=== PATIENT | male | born 1945 | race Caucasian/White ===

== ENCOUNTER 2018-01-22 01:10 | Emergency (ER) | payer BC, MEDICARE ==
[2018-01-22] MEDS ORDERED: ONDANSETRON 4 MG TAB.RAPDIS PO ONE ×2 (01:39→05:13)
--- NOTE | 2018-01-22 01:43 | ER Document Report ---
ED General - General Mode of Arrival: Ambulatory Information source: Patient TRAVEL OUTSIDE OF THE [place] IN LAST 30 DAYS: No - HPI Onset: Other - 7 hours Onset/Duration: Sudden Quality of pain: No pain Severity: None Pain Level: Denies Associated symptoms: Nausea Exacerbated by: Denies Relieved by: Denies Similar symptoms previously: No Recently seen / treated by doctor: No <TANNER CHAVEZ - Last Filed: 01/22/18 05:13> <OZ FARRAR - Last Filed: 01/22/18 08:29> - General Chief Complaint: Blood Pressure Problem Stated Complaint: NAUSEA Time Seen by Provider: 01/22/18 01:30 Notes: 72-year-old male presents the emergency department with complaints of nausea and some anxiousness. Patient states that the nausea started before dinner. He states that he ate a salad and lost his appetite. The nausea continued to persist. Patient checked his blood pressure and noticed it to be elevated. He states that his heart rate was elevated as well. Patient states that this caused him to become more anxious. He does have a history of anxiety and panic attacks. He states that he is not on any medication for this currently. He denies any chest pain or shortness of breath. He does have a history of coronary artery disease, hypertension, hyperlipidemia, family history of cad. Patient denies smoking. (TANNER CHAVEZ) - Related Data Allergies/Adverse Reactions: No Known Allergies Allergy (Unverified 01/22/18 08:04) Past Medical History - Social History Smoking Status: Never Smoker Chew tobacco use (# tins/day): No Frequency of alcohol use: Social Drug Abuse: None Family History: Reviewed & Not Pertinent Patient has suicidal ideation: No Patient has homicidal ideation: No Renal/ Medical History: Denies: Hx Peritoneal Dialysis <TANNER CHAVEZ - Last Filed: 01/22/18 05:13> Review of Systems - Review of Systems Constitutional: No symptoms reported EENT: No symptoms reported Cardiovascular: No symptoms reported Respiratory: No symptoms reported Gastrointestinal: Nausea Genitourinary: No symptoms reported Musculoskeletal: No symptoms reported Skin: No symptoms reported Hematologic/Lymphatic: No symptoms reported Neurological/Psychological: No symptoms reported -: Yes All other systems reviewed and negative <TANNER CHAVEZ - Last Filed: 01/22/18 05:13> Physical Exam - Vital signs Interpretation: Normal <TANNER CHAVEZ - Last Filed: 01/22/18 05:13> <OZ FARRAR - Last Filed: 01/22/18 08:29> - Vital signs Vitals: Temp Pulse Resp BP Pulse Ox 98 F 84 18 160/79 H 96 01/22/18 01:10 01/22/18 01:10 01/22/18 01:10 01/22/18 01:10 01/22/18 01:10 - Notes Notes: PHYSICAL EXAMINATION: GENERAL: Well-appearing, well-nourished and in no acute distress. HEAD: Atraumatic, normocephalic. EYES: Pupils equal round and reactive to light, extraocular movements intact, sclera anicteric, conjunctiva are normal. ENT: Nares patent, oropharynx clear without exudates. Moist mucous membranes. NECK: Normal range of motion, supple without lymphadenopathy LUNGS: Breath sounds clear to auscultation bilaterally and equal. No wheezes rales or rhonchi. HEART: Regular rate and rhythm without murmurs ABDOMEN: Soft, nontender, nondistended abdomen. No guarding, no rebound. No masses appreciated. Musculoskeletal: Normal range of motion, no pitting or edema. No cyanosis. NEUROLOGICAL: Cranial nerves grossly intact. Normal speech, normal gait. Normal sensory, motor exams PSYCH: Normal mood, normal affect. SKIN: Warm, Dry, normal turgor, no rashes or lesions noted. (TANNER CHAVEZ ) Course - Laboratory Result Diagrams: 01/22/18 01:41 01/22/18 01:41 <TANNER CHAVEZ - Last Filed: 01/22/18 05:13> - Laboratory Result Diagrams: 01/22/18 01:41 01/22/18 01:41 <OZ FARRAR - Last Filed: 01/22/18 08:29> - Re-evaluation Re-evalutation: 01/22/18 05:14 Labs and imaging obtained. 2 sets of troponin ordered. Both normal but second troponin is slightly increased from 1st. Patient remains asymptomatic. I will obtain another troponin. 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 01/22/18 07:28 01/22/18 07:48 Dr Tanner [facility] states pt does not meet transfer criteria [facility] Dr whittington does not have priveledges at [facility] paged 01/22/18 08:29 Dr whittington accepts patient for transfer (OZ FARRAR) - Vital Signs Vital signs: Temp Pulse Resp BP Pulse Ox 98 F 84 16 137/75 H 97 01/22/18 01:10 01/22/18 01:10 01/22/18 08:08 01/22/18 08:08 01/22/18 08:08 - Laboratory Laboratory results interpreted by me: 01/22/18 01/22/18 01:41 01:41 Seg Neutrophils % 84.2 H Lymphocytes % 8.5 L Glucose 112 H - EKG Interpretation by Me Additional EKG results interpreted by me: 01/22/18 01:42 EKG: Ventricular rate 82, MO interval 172, QRS duration 106, QTc 463, normal sinus rhythm, no ischemic changes. (TANNER CHAVEZ) Discharge <TANNER CHAVEZ - Last Filed: 01/22/18 05:13> <OZ FARRAR - Last Filed: 01/22/18 08:29> - Discharge Clinical Impression: Nausea, Anxiety Condition: Stable Disposition: [place] Instructions: Anxiety ([facility]), Nausea or Vomiting, Nonspecific ([facility]) Referrals: ABA PHELAN MD [Primary Care Provider] - Follow up as needed
[2018-01-22 01:55] LABS: ABSOLUTE LYMPHOCYTES (AUTO) 0.8 10^3/uL (0.5-4.7); ABSOLUTE MONOCYTES (AUTO) 0.6 10^3/uL (0.1-1.4); ABSOLUTE NEUT (AUTO) 7.6 10^3/uL (1.7-8.2); BASOPHILS % (AUTO) 0.5 % (0-2); EOSINOPHILS % (AUTO) 0.4 % (0-6); HEMATOCRIT 44.3 % (37.9-51.0); HEMOGLOBIN 15.8 g/dL (13.5-17.0); LYMPHOCYTES % (AUTO) 8.5 % (13-45); MEAN CORPUSCULAR HEMOGLOBIN 32.6 pg (27.0-33.4); MEAN CORPUSCULAR HGB CONC 35.6 g/dL (32.0-36.0); MEAN CORPUSCULAR VOLUME 92 fl (80-97); MONOCYTES % (AUTO) 6.4 % (3-13); PLATELET COUNT 181 10^3/uL (150-450); RED BLOOD COUNT 4.84 10^6/uL (4.35-5.55); RED CELL DISTRIBUTION WIDTH 13.3 % (11.5-14.0); SEGMENTED NEUTROPHILS % (AUTO) 84.2 % (42-78); TOTAL CELLS COUNTED % (AUTO) 100 %
[2018-01-22 02:18] LABS: ALANINE AMINOTRANSFERASE 36 U/L (21-72); ALBUMIN 4.4 g/dL (3.5-5.0); ALKALINE PHOSPHATASE 90 U/L (38-126); ANION GAP 13 (5-19); ASPARTATE AMINO TRANSFERASE 29 U/L (17-59); BILIRUBIN,DIRECT 0.4 mg/dL (0.0-0.4); BILIRUBIN,TOTAL 0.4 mg/dL (0.2-1.3); BLOOD UREA NITROGEN 18 mg/dL (7-20); CALCIUM 9.3 mg/dL (8.4-10.2); CARBON DIOXIDE 26 mmol/L (22-30); CHLORIDE 106 mmol/L (98-107); GLUCOSE 112 mg/dL (75-110); POTASSIUM 4.3 mmol/L (3.6-5.0); SODIUM 144.7 mmol/L (137-145); TOTAL PROTEIN 7.3 g/dL (6.3-8.2)
--- NOTE | 2018-01-22 02:26 | RADIOLOGY REPORT (SQ) ---
EXAM DESCRIPTION: XR CHEST 1 VIEW COMPLETED DATE/TME: 01/22/2018 01:38 CLINICAL HISTORY: NAUSA, ANXIETY COMPARISON: None. FINDINGS: Single frontal view of the chest. The cardiomediastinal silhouette has normal size and contour. No consolidation, pneumothorax, or pleural effusion. No displaced rib fractures identified. Leads overlie the chest. Upper abdominal soft tissues are unremarkable. IMPRESSION: 1. No acute pulmonary process identified.
[2018-01-22 09:10] VITALS: BP 140/74
--- NOTE | 2018-01-22 09:51 | ER Document Report ---
Doctor's Note Notes: 01/22/18 09:51 Patient is stable doing well no distress
--- NOTE | 2018-01-22 09:59 | EKG REPORT ---
SEVERITY:- NORMAL ECG - SINUS RHYTHM : Confirmed by: Cara Ramirez MD 22-Jan-2018 09:58:59
== END 2018-01-22 09:58 | disposition short-term general hospital (02) ==
LOC: ER 01:10
DX: R11.0 Nausea (principal); F41.9 Anxiety disorder, unspecified; I10 Essential (primary) hypertension; I25.10 Atherosclerotic heart disease of native coronary artery without angina pectoris; Z82.49 Family history of ischemic heart disease and other diseases of the circulatory system
CPT/HCPCS: 93005; 99285; 36415; 85025; 80053; 84484; 71045; 93010; S0119